=== PATIENT | female | born 1995 | race Caucasian/White ===

== ENCOUNTER → 2023-11-02 10:20 | Outpatient (REF) | payer BC, SELFPAY | LOC: PNTC 10:20 | PROVIDERS: ATTENDING PHYSICIAN Obstetrics & Gynecology | DX: Z36.0 Encounter for antenatal screening for chromosomal anomalies (principal); Z36.82 Encounter for antenatal screening for nuchal translucency | CPT/HCPCS: 76801; 76813 ==

== ENCOUNTER → 2023-11-30 10:56 | Outpatient (REF) | payer BC, SELFPAY | LOC: PNTC 10:56 | PROVIDERS: ATTENDING PHYSICIAN Obstetrics & Gynecology | DX: O99.210 Obesity complicating pregnancy, unspecified trimester (principal); Z87.59 Personal history of other complications of pregnancy, childbirth and the puerperium | CPT/HCPCS: 76805 ==

== ENCOUNTER 2023-12-13 09:37 | Emergency (ER) | payer BC, SELFPAY ==
[2023-12-13 09:48] VITALS: BP 151/92
--- NOTE | 2023-12-13 10:30 | ED.GENMED ---
History of Present Illness
General
Chief Complaint: Vaginal Bleeding
Time Seen by Provider: 12/13/23 10:06
Travel History
Have you had any contact with someone who has COVID-19?: No
Do you have any symptoms of coronavirus? Fever > 100 degrees, chills, cough, shortness of breath, sore throat, loss of taste or smell, muscle aches, or headache?: No
History of Present Illness
History of Present Illness:
28-year-old female, G4, P2 currently at 18 weeks gestational age presents to the emergency department for evaluation this morning. She states she had a busy weekend with lots of physical exertion a large blood clot passed through the vagina and
since that time has had small spotting. Denies any pelvic pain or cramping. She was. She states she has been feeling movement prior to this but is not feeling any movement this morning. Denies any dizziness or lightheadedness.
Past History
Past History
ED Past Medical History: Asthma
ED Past Surgical History: Tonsilectomy
Social History
Tobacco: Former smoker
Alcohol: Occasional
Drug: None
Personal: Single
Review of Systems
Review of Systems
Allergies reviewed?: Yes
All Other Systems: ROS reviewed and negative except as documented in HPI and ROS
Phy Exam
Physical Exam
Physical Exam:
GEN: Well appearing, NAD, WDWN
HEENT: Oral mucosa moist, no scleral icterus
Cardiac: Regular rate
Lung: No respiratory distress, no tachypnea
MSK: No gross deformity or injuries
Skin: Good color, no pallor or jaundice, no rashes
Neuro: AO x3, moves all extremities freely
Psych: Calm, cooperative
Course
Orders/Labs/Results
Orders:
Orders
12/13/23 10:12
Complete Blood Count/With Diff Urgent
Limited US [US Limited] Urgent
Comment:
Reason For Exam: 18wk GA bleeding
Vital Signs
Initial and Last Documented VS:
Initial Vital Signs
Temp Pulse Resp BP Pulse Ox
99.3 F 93 18 151/92 98
12/13/23 09:48 12/13/23 09:48 12/13/23 09:48 12/13/23 09:48 12/13/23 09:48
Last Documented Vital Signs
Temp Pulse Resp BP Pulse Ox
99.3 F 93 18 151/92 98
12/13/23 09:48 12/13/23 09:48 12/13/23 09:48 12/13/23 09:48 12/13/23 09:48
MDM/Problems Addressed
MDM/Problems Addressed:
Ultrasound reveals placenta previa which is likely the cause of her vaginal spotting. No evidence for threatened miscarriage however counseled the patient that this is a risk with any degree of vaginal bleeding. History of O+ blood type thus does
not require RhoGAM. Educated on strict pelvic rest until DENTAL APPLIANCE REPAIRER follow-up which is already scheduled for 1 week from today
*Critical Care Note
Total Time (30-74mins, 75-104mins- exclusive of procedures): Not Applicable
ED Attending Note
-
Portions of this chart may have been created with voice recognition software.� Occasional wrong word or��sound alike� substitutions may have occurred due to the inherent limitations of voice recognition software.
Discharge Plan
Departure
Patient Disposition: Home (Routine Discharge)
Date of Disposition: 12/13/23
Time of Disposition: 11:40
Patient with high blood pressure during this ER visit?: No
Discharge Problem:
Placenta previa
Instructions: Placenta previa
Prescriptions:
No Action
PNV cmb#95-ferrous fumarate-FA [] 1 EACH tablet
1 ea PO DAILY
cetirizine [Zyrtec] 10 MG tablet
10 mg PO DAILY
famotidine [Pepcid AC] 20 MG tablet
10 mg PO DAILY
docusate sodium [Colace] 100 MG capsule
100 mg PO DAILY
acetaminophen 325 mg Tablet
650 mg PO Q4HPRN PRN (Reason: mild pain) Qty: 0 0RF
oxycodone-acetaminophen 5-325 mg Tablet
1 tab PO Q4HPRN PRN (Reason: moderate pain) Qty: 10 0RF
ibuprofen 600 mg Tablet
600 mg PO Q6HPRN PRN (Reason: cramps) Qty: 45 0RF
simethicone [Gas Relief 80 (simethicone)] 80 mg Tablet,Chewable
80 mg PO TIDPRN PRN (Reason: flatulence) Qty: 0 0RF
Referrals:
Larissa Jara PA-C [Family Provider] -
Activity Restrictions/Additional Instructions:
We have to recommend strict pelvic rest, including no intercourse, vigorous exertion or heavy lifting >20 lbs
Follow up with your OBGYN in 1-2 weeks for re-assessment
If bleeding worsens, return to the Emergency Department
Interventions
Interventions:
*Risk Screen - Suicide Last Done: 12/13/23 09:48
*General Assessment Last Done: 12/13/23 09:48
*Neglect/Abuse Screening Last Done: 12/13/23 09:48
*ED COVID-19 Vaccine History Last Done: 12/13/23 09:48
*Nursing Disposition Last Done: 12/13/23 12:00
ED-Female Genitourinary Assessment Last Done: 12/13/23 12:37
Discharge Date and Time
Discharge Date/Time: 12/13/23 12:42
Print Language: [email or web address]
[2023-12-13 10:31] VITALS: BMI 41.5
== END 2023-12-13 12:42 | disposition home or self-care (01) ==
LOC: EMR 09:37
PROVIDERS: EMERGENCY PHYSICIAN Emergency Medicine; FAMILY PHYSICIAN Physician Assistant Medical
DX: O44.12 Complete placenta previa with hemorrhage, second trimester (principal); Z3A.18 18 weeks gestation of pregnancy; O99.891 Other specified diseases and conditions complicating pregnancy; J45.909 Unspecified asthma, uncomplicated; Z87.891 Personal history of nicotine dependence
CPT/HCPCS: 99284; 76815

== ENCOUNTER → 2023-12-27 09:52 | Outpatient (REF) | payer BC, SELFPAY | LOC: PNTC 09:52 | PROVIDERS: ATTENDING PHYSICIAN Obstetrics & Gynecology | DX: O99.210 Obesity complicating pregnancy, unspecified trimester (principal); Z87.59 Personal history of other complications of pregnancy, childbirth and the puerperium | CPT/HCPCS: 76811; 76817 ==

== ENCOUNTER → 2024-02-08 09:52 | Outpatient (REF) | payer BC, SELFPAY | LOC: PNTC 09:52 | PROVIDERS: ATTENDING PHYSICIAN Obstetrics & Gynecology | DX: O99.210 Obesity complicating pregnancy, unspecified trimester (principal) | CPT/HCPCS: 76816 ==

== ENCOUNTER → 2024-03-21 10:44 | Outpatient (REF) | payer BC, SELFPAY | LOC: PNTC 10:44 | PROVIDERS: ATTENDING PHYSICIAN Obstetrics & Gynecology | DX: O99.210 Obesity complicating pregnancy, unspecified trimester (principal) | CPT/HCPCS: 59025; 76816 ==

== ENCOUNTER 2024-03-23 17:01 | Observation (INO) | payer BC, SELFPAY ==
[2024-03-23 17:11] VITALS: BP 132/73; BMI 38.3
[2024-03-23 18:36] LABS: Hematocrit 29.6 % (37.0-47.0); Hemoglobin 10.3 g/dL (12.0-16.0); Mean Corp Hgb Conc. 34.8 g/dL (33.0-37.0); Mean Corpuscular Hgb 29.9 pg (27.0-31.0); Mean Corpuscular Volume 85.8 fL (81.0-99.0); Mean Platelet Volume 10.7 fL (7.4-10.4); Platelet Count 195 10^3/uL (130-400); Red Blood Cell Count 3.45 10^6/uL (4.20-5.40); Red Cell Dist. Width 12.6 % (11.5-14.5); White Blood Cell Count 10.2 10^3/uL (4.8-10.8)
[2024-03-23 19:05] LABS: Fibrinogen 675 MG/DL (199-459)
[2024-03-24] MEDS: TYLENOL 1000 MG PO (00:11)
== END 2024-03-24 08:03 | disposition home or self-care (01) ==
LOC: LDRP 17:01
PROVIDERS: ADMITTING PHYSICIAN Obstetrics & Gynecology; FAMILY PHYSICIAN Family Medicine
DX: R10.31 Right lower quadrant pain (principal); Z3A.32 32 weeks gestation of pregnancy; W10.8XXA Fall (on) (from) other stairs and steps, initial encounter; Y93.89 Activity, other specified; Y92.219 Unspecified school as the place of occurrence of the external cause; O99.213 Obesity complicating pregnancy, third trimester
CPT/HCPCS: 76815; 85027; 85384; 85460; 86850; 86900; 86901; G0378

== ENCOUNTER → 2024-03-27 07:13 | Outpatient (REF) | payer BC, SELFPAY | LOC: PNTC 07:13 | PROVIDERS: ATTENDING PHYSICIAN Obstetrics & Gynecology | DX: Z34.00 Encounter for supervision of normal first pregnancy, unspecified trimester (principal) | CPT/HCPCS: 59025; 76815 ==

== ENCOUNTER → 2024-04-03 13:16 | Outpatient (REF) | payer BC, SELFPAY | LOC: PNTC 13:16 | PROVIDERS: ATTENDING PHYSICIAN Obstetrics & Gynecology | DX: O99.210 Obesity complicating pregnancy, unspecified trimester (principal) | CPT/HCPCS: 59025; 76815 ==

== ENCOUNTER 2024-04-06 17:30 | Observation (INO) | payer BC, SELFPAY ==
[2024-04-06 17:57] VITALS: BP 127/77; BMI 38.3
[2024-04-06 18:45] LABS: Hematocrit 28.9 % (37.0-47.0); Hemoglobin 10.1 g/dL (12.0-16.0); Mean Corp Hgb Conc. 34.9 g/dL (33.0-37.0); Mean Platelet Volume 10.7 fL (7.4-10.4); Platelet Count 189 10^3/uL (130-400); Red Blood Cell Count 3.48 10^6/uL (4.20-5.40); Red Cell Dist. Width 13.1 % (11.5-14.5); White Blood Cell Count 8.9 10^3/uL (4.8-10.8)
[2024-04-06 19:01] LABS: Protein/creatinine Ratio 0.1; Urine Protein 9 mg/dl
[2024-04-06] MEDS: TYLENOL 1000 MG PO (19:05)
[2024-04-06 19:06] LABS: ALT (SGPT) 18 U/L (0-35); AST (SGOT) 20 U/L (14-36); Albumin 3.4 g/dl (3.5-5.0); Alkaline Phosphatase 113 U/L (38-126); Blood Urea Nitrogen 5 mg/dl (7-17); Calcium 9.3 mg/dl (8.4-10.2); Carbon Dioxide 17 mmol/L (22-30); Chloride 105 mmol/L (98-107); Estimated Creatinine Clearance > 125 ml/min; Glucose 100 mg/dl (70-99); Potassium 3.6 mmol/L (3.5-5.1); Sodium 139 mmol/L (135-145); Total Bilirubin 0.4 mg/dl (0.2-1.3); Total Protein 6.1 g/dl (6.3-8.2); eGFR > 60.00
== END 2024-04-06 20:15 | disposition home or self-care (01) ==
LOC: LDRP 17:30
PROVIDERS: ADMITTING PHYSICIAN Student in an Organized Health Care Education/Training Program
DX: R51.9 Headache, unspecified (principal); J45.909 Unspecified asthma, uncomplicated; O99.343 Other mental disorders complicating pregnancy, third trimester; F32.A Depression, unspecified; Z3A.34 34 weeks gestation of pregnancy; Z91.018 Allergy to other foods; F42.9 Obsessive-compulsive disorder, unspecified
CPT/HCPCS: 80053; 82570; 84156; 85027; G0378

== ENCOUNTER 2024-04-11 10:38 | Observation (INO) | payer BC, SELFPAY ==
[2024-04-11 10:59] LABS: Urine Albumin Negative (Neg - Trace); Urine Bilirubin Negative (Negative); Urine Character Slightly Cloudy (Clear); Urine Color Yellow; Urine Glucose Negative (Negative); Urine Ketone Negative (Negative); Urine Leukocyte 1+ (Negative); Urine Nitrite Negative (Negative); Urine Occult Blood Negative (Negative); Urine Specific Gravity 1.015 (<1.030); Urine Urobilinogen Negative (Neg - 1+)
[2024-04-11 11:00] VITALS: BP 136/77; BMI 41.6
[2024-04-11 11:01] LABS: Hematocrit 31.4 % (37.0-47.0); Hemoglobin 10.4 g/dL (12.0-16.0); Mean Corp Hgb Conc. 33.1 g/dL (33.0-37.0); Mean Corpuscular Hgb 28.7 pg (27.0-31.0); Mean Corpuscular Volume 86.7 fL (81.0-99.0); Mean Platelet Volume 10.6 fL (7.4-10.4); Platelet Count 166 10^3/uL (130-400); Red Blood Cell Count 3.62 10^6/uL (4.20-5.40); Red Cell Dist. Width 13.7 % (11.5-14.5); White Blood Cell Count 6.9 10^3/uL (4.8-10.8)
[2024-04-11 11:27] LABS: ALT (SGPT) 20 U/L (0-35); AST (SGOT) 24 U/L (14-36); Albumin 3.6 g/dl (3.5-5.0); Alkaline Phosphatase 119 U/L (38-126); Blood Urea Nitrogen 4 mg/dl (7-17); Calcium 9.2 mg/dl (8.4-10.2); Carbon Dioxide 22 mmol/L (22-30); Chloride 105 mmol/L (98-107); Estimated Creatinine Clearance > 125 ml/min; Glucose 93 mg/dl (70-99); Potassium 4.3 mmol/L (3.5-5.1); Sodium 137 mmol/L (135-145); Total Bilirubin 0.5 mg/dl (0.2-1.3); Total Protein 6.2 g/dl (6.3-8.2); eGFR > 60.00
[2024-04-11 11:38] LABS: Protein/creatinine Ratio 0.1; Urine Protein 5 mg/dl
[2024-04-11 12:19] LABS: Urine Squamous Cell >30 /LPF (Few)
[2024-04-11 12:20] LABS: Urine Bacteria Few (Negative); Urine Red Blood Cell 0-2 /HPF (0-2)
== END 2024-04-11 12:00 | disposition home or self-care (01) ==
LOC: PNTC-IN 10:38
PROVIDERS: ADMITTING PHYSICIAN Obstetrics & Gynecology; ATTENDING PHYSICIAN Obstetrics & Gynecology
DX: O13.3 Gestational [pregnancy-induced] hypertension without significant proteinuria, third trimester (principal); Z3A.35 35 weeks gestation of pregnancy; O34.219 Maternal care for unspecified type scar from previous cesarean delivery
CPT/HCPCS: 59025; 76815; 80053; 81003; 81015; 82570; 84156; 85027; G0378

== ENCOUNTER → 2024-04-13 10:17 | Outpatient (REF) | payer BC, SELFPAY | LOC: PNTC 10:17 | PROVIDERS: ATTENDING PHYSICIAN Obstetrics & Gynecology | DX: O14.90 Unspecified pre-eclampsia, unspecified trimester (principal) | CPT/HCPCS: 59025 ==

== ENCOUNTER → 2024-04-17 13:21 | Outpatient (REF) | payer BC, SELFPAY | LOC: PNTC 13:21 | PROVIDERS: ATTENDING PHYSICIAN Obstetrics & Gynecology | DX: O99.210 Obesity complicating pregnancy, unspecified trimester (principal) | CPT/HCPCS: 59025; 76816 ==

== ENCOUNTER → 2024-04-25 10:24 | Outpatient (REF) | payer BC, SELFPAY | LOC: PNTC 10:24 | PROVIDERS: ATTENDING PHYSICIAN Obstetrics & Gynecology | DX: O99.210 Obesity complicating pregnancy, unspecified trimester (principal) | CPT/HCPCS: 59025; 76815 ==

== ENCOUNTER → 2024-05-02 10:03 | Outpatient (REF) | payer BC, SELFPAY | LOC: PNTC 10:03 | PROVIDERS: ATTENDING PHYSICIAN Obstetrics & Gynecology | DX: O99.210 Obesity complicating pregnancy, unspecified trimester (principal) | CPT/HCPCS: 59025; 76815 ==

== ENCOUNTER 2024-05-02 15:45 | Inpatient (IN) | payer BC, SELFPAY ==
[2024-05-02 15:57] VITALS: BP 139/85; BMI 41.6
[2024-05-02 16:53] LABS: % Basophils 0.4 % (0-2); % Eosinophils 0.4 % (0-6); % Immature Granulocytes 1.4 % (0-0.5); % Lymphocytes 16.7 % (20.5-51.1); % Monocytes 5.9 % (1.7-9.3); % Neutrophils 75.2 % (42.2-75.2); Absolute Immature Granulocytes 0.1 10^3/uL (0-0.05); Absolute Lymphocytes 1.5 10^3/uL (1.2-3.4); Absolute Monocytes 0.5 10^3/uL (0.1-0.6); Absolute Neutrophils 6.9 10^3/uL (1.4-6.5); Hematocrit 33.4 % (37.0-47.0); Hemoglobin 11.4 g/dL (12.0-16.0); Mean Corp Hgb Conc. 34.1 g/dL (33.0-37.0); Mean Platelet Volume 10.9 fL (7.4-10.4); Nucleated Red Blood Cells % 0 %; Platelet Count 183 10^3/uL (130-400); Red Blood Cell Count 3.93 10^6/uL (4.20-5.40); Red Cell Dist. Width 15.5 % (11.5-14.5); White Blood Cell Count 9.2 10^3/uL (4.8-10.8)
[2024-05-02 17:00] LABS: Urine Albumin Negative (Neg - Trace); Urine Bilirubin Negative (Negative); Urine Character Clear (Clear); Urine Color Yellow; Urine Glucose Negative (Negative); Urine Ketone Negative (Negative); Urine Leukocyte Trace (Negative); Urine Nitrite Negative (Negative); Urine Occult Blood Negative (Negative); Urine Urobilinogen Negative (Neg - 1+)
[2024-05-02 17:15] LABS: Urine Bacteria Few (Negative); Urine Red Blood Cell 0-2 /HPF (0-2); Urine Squamous Cell >30 /LPF (Few); Urine White Cell 0-2 /HPF (0-5)
[2024-05-02 17:19] LABS: ALT (SGPT) 22 U/L (0-35); AST (SGOT) 24 U/L (14-36); Albumin 3.7 g/dl (3.5-5.0); Alkaline Phosphatase 131 U/L (38-126); Blood Urea Nitrogen 6 mg/dl (7-17); Calcium 9.8 mg/dl (8.4-10.2); Carbon Dioxide 19 mmol/L (22-30); Chloride 105 mmol/L (98-107); Estimated Creatinine Clearance > 125 ml/min; Glucose 105 mg/dl (70-99); Potassium 4.1 mmol/L (3.5-5.1); Protein/creatinine Ratio 0.4; Sodium 135 mmol/L (135-145); Total Bilirubin 0.5 mg/dl (0.2-1.3); Total Protein 6.4 g/dl (6.3-8.2); Uric Acid 3.9 mg/dl (2.5-6.2); Urine Protein 12 mg/dl; eGFR > 60.00
[2024-05-02] MEDS: ANCEF 10 IV (19:10)
[2024-05-02] MEDS: BICITRA 30 ML PO (19:10)
[2024-05-02] MEDS: TYLENOL 1000 MG PO (19:10)
[2024-05-02] MEDS: PITOCIN 30 UNITS/NSS 500 ML IV (21:34)
[2024-05-02] MEDS: LR 1000 IV (21:35)
[2024-05-02] MEDS: TORADOL 15 MG IV (21:54)
[2024-05-02] MEDS: TYLENOL 650 MG PO (23:06)
[2024-05-03] MEDS: TORADOL 15 MG IV ×3 (03:50→17:41)
--- NOTE | 2024-05-03 04:03 | DOWNTIME ---
There was a [email or web address] Client [employer] Press Tender Downtime on 05/03/2024 from 0100 to 05/03/2024 at 0355. Downtime documentation of patient's care, including medication administrations, has been reconciled in the electronic record per guidelines. Refer to the
patient's paper chart under the miscellaneous tab to see printed paper medication records and downtime forms.
[2024-05-03 05:00] LABS: Hematocrit 32.6 % (37.0-47.0); Mean Corp Hgb Conc. 33.7 g/dL (33.0-37.0); Mean Corpuscular Hgb 30.1 pg (27.0-31.0); Mean Corpuscular Volume 89.1 fL (81.0-99.0); Platelet Count 148 10^3/uL (130-400); Red Blood Cell Count 3.66 10^6/uL (4.20-5.40); Red Cell Dist. Width 15.4 % (11.5-14.5); White Blood Cell Count 10.7 10^3/uL (4.8-10.8)
--- NOTE | 2024-05-03 06:55 | W.PN.ANS.POP ---
Anesthesia Post Operative
- Anesthesia Post Op Note
Vital Signs Stable-See Nursing Note: Yes
Airway Patent: Yes
Adequate Pain Control: Yes
Change in Mental Status: No
Current Postoperative Nausea & Vomiting: No
Anesthesia Complications: No
General Anesthetic Recall: No
Unplanned Admission: No
Post Op Hydration Adequate: Yes
[2024-05-03] MEDS: PRENATAL PLUS 1 TABLET PO (08:56)
[2024-05-03] MEDS: SENOKOT-S 1 TABLET PO (08:56)
[2024-05-03] MEDS: TYLENOL 650 MG PO (20:17)
[2024-05-03] MEDS: MOTRIN 600 MG PO (22:51)
[2024-05-04] MEDS: MOTRIN 600 MG PO ×2 (04:52→11:22)
[2024-05-04] MEDS: TYLENOL 650 MG PO ×2 (04:53→14:30)
[2024-05-04] MEDS: PRENATAL PLUS 1 TABLET PO (08:53)
[2024-05-05 16:26] LABS: Syphilis/T. pallidum Ab Reflex Negative (Negative)
== END 2024-05-04 16:56 | disposition home or self-care (01) | DRG 785 ==
LOC: LDRP 15:45
PROVIDERS: ADMITTING PHYSICIAN Obstetrics & Gynecology; FAMILY PHYSICIAN Family Medicine
PROC: 0UB50ZZ Excision of Right Fallopian Tube, Open Approach (ICD-10-PCS; 2024-05-02)
PROC: 10D00Z1 Extraction of Products of Conception, Low, Open Approach (ICD-10-PCS; 2024-05-02)
PROC: 0UT60ZZ Resection of Left Fallopian Tube, Open Approach (ICD-10-PCS; 2024-05-02)
DX: O14.04 Mild to moderate pre-eclampsia, complicating childbirth (principal); O34.211 Maternal care for low transverse scar from previous cesarean delivery; Z3A.38 38 weeks gestation of pregnancy; Z37.0 Single live birth; Z30.2 Encounter for sterilization; O99.214 Obesity complicating childbirth; O99.52 Diseases of the respiratory system complicating childbirth; J45.909 Unspecified asthma, uncomplicated
CPT/HCPCS: 88302; 88307; 36415; 58605; 59025; 80053; 81003; 81015; 82570; 84156; 84550; 85025; 85027; 86780; 86850; 86900; 86901

== ENCOUNTER → 2024-06-23 10:28 | Outpatient (REF) | payer BC, SELFPAY | LOC: RCS 10:28 | PROVIDERS: ATTENDING PHYSICIAN Physician Assistant Medical | DX: R00.2 Palpitations (principal) | CPT/HCPCS: 93225; 93226 ==

== ENCOUNTER → 2024-07-06 14:51 | Outpatient (REF) | payer BC, SELFPAY | LOC: RCS 14:51 | PROVIDERS: ATTENDING PHYSICIAN Physician Assistant Medical | DX: R00.2 Palpitations (principal) | CPT/HCPCS: 93306 ==

== ENCOUNTER 2025-04-20 17:52 | Emergency (ER) | payer BC, SELFPAY ==
[2025-04-20 17:56] VITALS: BP 148/90
--- NOTE | 2025-04-20 18:49 | ED.GENMED ---
History of Present Illness
<Hilda St PA-C - Last Filed: 04/21/25 09:36>
General
Chief Complaint: Fainting/Passed Out
Source: patient
Exam Limitations: none
Time Seen by Provider: 04/20/25 18:30
History of Present Illness
History of Present Illness:
30yoF with a history of asthma and migraines presenting for evaluation of multiple complaints. Patient was seen by her PCP a few days ago for GI symptoms including lower abdominal discomfort. She was diagnosed with presumed diverticulitis and
prescribed Flagyl and advised to use a clear liquid diet. Her abdominal symptoms are improving although she still continues to have abdominal pain. She started with a frontal headache about 2 hours prior to arrival which has been gradually
worsening and is now severe. Her pain is currently rated as a 10 out of 10 in severity. She had a similar headache a few months ago during an ocular migraine. She was in the car this evening and was looking at her cell phone when she started to
become dizzy. She then passed out several times within a few minute time frame. She denies any chest pain or shortness of breath. She denies chance of .
Past History
<Hilda St PA-C - Last Filed: 04/21/25 09:36>
Past History
ED Past Medical History: Asthma
ED Past Surgical History: Tonsilectomy
Social History
Tobacco: Former smoker
Alcohol: Occasional
Drug: None
Personal: Single
Phy Exam
<Hilda St PA-C - Last Filed: 04/21/25 09:36>
Physical Exam
Physical Exam:
Patient crying and clutching head. Sitting in a dark room
General Physical Exam
General Presentation: moderate distress
General Skin: warm and dry
General Habitus: normal
General Mental: alert and anxious
ENT Exam
ENT Exam: normocephalic and other (Full ROM of cervical spine without meningismus )
Eye Exam
Eye Exam: PERRL and conjunctiva normal
Cardiovascular Exam
Cardiovascular Exam: regular rate/rhythm, no edema and no murmur
Pulmonary Exam
Pulmonary Exam: lungs clear, no respiratory distress, no rales, no crackles, no rhonchi and no wheezing
Gastrointestinal Exam
Gastrointestinal Exam: soft, non distended and other (+Tenderness throughout lower abdomen. Abdomen soft, non-distended. No rebound or guarding.)
Neurological Exam
Neurological Exam: alert, speech normal and other (Speech normal. No focal neuro deficits.)
[place] Coma Scale
Eye Opening: Spontaneous
Verbal Response: Oriented
Motor Response: Obeys Commands
GCS Total Score: 15
Skin Exam
Skin Exam: normal color and warm/dry
Psychiatric Exam
Psychiatric Exam: normal mood/affect
<Angel Blake PA-C - Last Filed: 04/20/25 22:57>
[place] Coma Scale
GCS Total Score: 15
Course
<Hilda St PA-C - Last Filed: 04/21/25 09:36>
Orders/Labs/Results
Orders:
Orders
04/20/25 18:03
EKG [Electrocardiogram (*1)] Urgent
Reason for Study: Fatigue / Weakness
EKG- Treatment ONCE
04/20/25 18:40
Cardiac Monitoring- Treatment ONCE
0.9% Sodium Chloride 1000 ml [Nss] 1,000 ml IV BOLUS
Acetaminophen 1000MG/100Ml [Ofirmev] 1,000 mg in 100 ml IV ONCE
Acetaminophen IV Indication:: ED Narcotic Naive Pt-ONCE
Diphenhydramine [Benadryl] 25 mg IV NOW STA
Magnesium Sulfate 2 Gram/50 ml [Magnesium Sulfate] 2 gram in 50 ml IV NOW
Metoclopramide [Reglan] 10 mg IV NOW STA
Test Result ONCE
04/20/25 18:41
CT Abd/pelvis W Iv Cont Urgent
Comment:
Reason For Exam: lower abd pain
CT Head W/o Iv Contrast Urgent
Comment:
Reason For Exam: acute headache
04/20/25 18:49
Complete Blood Count/With Diff Urgent
Comprehensive Metabolic Panel Urgent
HCG, Serum Qualitative Screen Urgent
Lipase Urgent
Troponin I Urgent
04/20/25 19:18
Urinalysis Reflex To Culture Urgent
Date Specimen was Collected: 04/20/25
Time Specimen was Collected: 19:17
Urine Microscopic Reflex Cult Urgent
Urine Culture Urgent
CARLYN Source: U
Specimen Description:
Date Specimen was Collected: 04/20/25
Time Specimen was Collected: 19:17
Abnormal Lab Results
04/20/25 04/20/25
18:49 19:18
RBC 4.17 L 10^6/uL
(4.20-5.40)
Hgb 11.8 L g/dL
(12.0-16.0)
Hct 34.7 L %
(37.0-47.0)
Leukocyte Esterase Rfl 1+ A
(Negative)
Urine Bacteria (Reflex) Few A
(Negative)
04/20/25 18:49
04/20/25 18:49
Vital Signs
Initial and Last Documented VS:
Initial Vital Signs
Temp Pulse Resp BP Pulse Ox
98.2 F 70 16 148/90 100
04/20/25 17:56 04/20/25 17:56 04/20/25 17:56 04/20/25 17:56 04/20/25 17:56
Last Documented Vital Signs
Temp Pulse Resp BP Pulse Ox
98.2 F 52 16 117/67 97
04/20/25 17:56 04/20/25 21:30 04/20/25 21:30 04/20/25 21:00 04/20/25 21:30
<Angel Blake PA-C - Last Filed: 04/20/25 22:57>
Orders/Labs/Results
Orders:
Orders
04/20/25 18:03
EKG [Electrocardiogram (*1)] Urgent
Reason for Study: Fatigue / Weakness
EKG- Treatment ONCE
04/20/25 18:40
Cardiac Monitoring- Treatment ONCE
0.9% Sodium Chloride 1000 ml [Nss] 1,000 ml IV BOLUS
Acetaminophen 1000MG/100Ml [Ofirmev] 1,000 mg in 100 ml IV ONCE
Acetaminophen IV Indication:: ED Narcotic Naive Pt-ONCE
Diphenhydramine [Benadryl] 25 mg IV NOW STA
Magnesium Sulfate 2 Gram/50 ml [Magnesium Sulfate] 2 gram in 50 ml IV NOW
Metoclopramide [Reglan] 10 mg IV NOW STA
Test Result ONCE
04/20/25 18:41
CT Abd/pelvis W Iv Cont Urgent
Comment:
Reason For Exam: lower abd pain
CT Head W/o Iv Contrast Urgent
Comment:
Reason For Exam: acute headache
04/20/25 18:49
Complete Blood Count/With Diff Urgent
Comprehensive Metabolic Panel Urgent
HCG, Serum Qualitative Screen Urgent
Lipase Urgent
Troponin I Urgent
04/20/25 19:18
Urinalysis Reflex To Culture Urgent
Date Specimen was Collected: 04/20/25
Time Specimen was Collected: 19:17
Urine Microscopic Reflex Cult Urgent
Urine Culture Urgent
CARLYN Source: U
Specimen Description:
Date Specimen was Collected: 04/20/25
Time Specimen was Collected: 19:17
Abnormal Lab Results
04/20/25 04/20/25
18:49 19:18
RBC 4.17 L 10^6/uL
(4.20-5.40)
Hgb 11.8 L g/dL
(12.0-16.0)
Hct 34.7 L %
(37.0-47.0)
Leukocyte Esterase Rfl 1+ A
(Negative)
Urine Bacteria (Reflex) Few A
(Negative)
04/20/25 18:49
04/20/25 18:49
Vital Signs
Initial and Last Documented VS:
Initial Vital Signs
Temp Pulse Resp BP Pulse Ox
98.2 F 70 16 148/90 100
04/20/25 17:56 04/20/25 17:56 04/20/25 17:56 04/20/25 17:56 04/20/25 17:56
Last Documented Vital Signs
Temp Pulse Resp BP Pulse Ox
98.2 F 52 16 117/67 97
04/20/25 17:56 04/20/25 21:30 04/20/25 21:30 04/20/25 21:00 04/20/25 21:30
Liorlt;Hilda St PA-C - Last Filed: 04/21/25 09:36>
MDM/Problems Addressed
Differential Diagnosis Includes:
30yoF here with a severe headache x 2 hours. Hx of migraines and this feels the same although she is typically able to manage her headaches at home. Also had syncopal episodes in the car [employer]WR[employer]ER. Currently being treated for diverticulitis. Patient is
crying on initial exam and is clutching her head. No focal neuro deficits or nuchal rigidity noted. Differential diagnosis includes but is not limited to: Migraine, cluster headache, tension headache, consider subarachnoid hemorrhage, dehydration,
less likely ACS
Initial ED plan: Check abdominal labs, troponin/EKG, hCG, UA, CT head, and CT abdomen. IV Reglan, Benadryl, Ofirmev, magnesium, and fluid bolus for symptoms.
Final assessment: Labs overall unremarkable. Hemoglobin is minimally decreased at 11.8. Remainder of labs are normal including normal glucose and troponin. EKG shows normal sinus rhythm without ischemic changes or ectopy. CT head is negative for
acute findings but does show Chiari I malformation. Given that head CT was obtained <6 hours of symptom onset, this is sufficiency to rule out subarachnoid hemorrhage. Patient feeling significantly improved on reassessment and headache is down to
a 3/10 in severity. Case signed out to Finn Blake PA-C pending CT abdomen results.
<Hilda St PA-C - Last Filed: 04/21/25 09:36>
*Pulse Oximetry
SaO2: 100
Oxygen Mode of Delivery: Room air
<Angel Blake PA-C - Last Filed: 04/20/25 22:57>
*Pulse Oximetry
Patient hypoxic: no
*Critical Care Note
Total Time (30-74mins, 75-104mins- exclusive of procedures): Not Applicable
<Angel Blake PA-C - Last Filed: 04/20/25 22:57>
Update Note
Update Note:
Assumed care of patient at shift change, awaiting CT abdomen results. CT shows left sided ovarian cyst with small amount of fluid in the pelvic cul-de-sac. I suggest to the patient that given lack of findings of diverticulitis that she stop her
metronidazole as diverticulitis is less likely and her pain may be due to the ovarian cyst. Regards to her syncope this may be related to a migraine that she reported having today. She is advised to follow-up with her primary care physician for
further workup of this
ED Attending Note
<Hilda St PA-C - Last Filed: 04/21/25 09:36>
-
Portions of this chart may have been created with voice recognition software.� Occasional wrong word or��sound alike� substitutions may have occurred due to the inherent limitations of voice recognition software.
Discharge Plan
Departure
Patient Disposition: Home (Routine Discharge)
Date of Disposition: 04/20/25
Time of Disposition: 21:32
Patient with high blood pressure during this ER visit?: No
Discharge Problem:
Syncope
Instructions: Syncope (Fainting) (DC)
Prescriptions:
No Action
PNV no.95-ferrous fumarate-FA [] 1 EACH tablet
1 ea PO DAILY
cetirizine [Zyrtec] 10 MG tablet
10 mg PO DAILY
famotidine [Pepcid AC] 20 MG tablet
10 mg PO DAILY
ferrous sulfate 30 mg iron/2 mL Syringe
65 mg PO DAILY
albuterol 90 mcg/actuation Aerosol
See Rx Instructions .ROUTE .COMPLEX PRN (Reason: allergy induced asthma)
Rx Instructions:
as needed for SOB
magnesium oxide 250 mg magnesium Tablet
250 mg PO DAILY
sennosides-docusate sodium 8.6-50 mg Tablet
1 tab PO DAILYPRN PRN (Reason: constipation) Qty: 30 0RF
ibuprofen 600 mg Tablet
600 mg PO Q6HPRN PRN (Reason: cramps) Qty: 30 0RF
acetaminophen 325 mg Tablet
650 mg PO Q4HPRN PRN (Reason: mild pain) Qty: 30 0RF
Referrals:
Eusebia López PA [Family Provider, Family Practice]
Activity Restrictions/Additional Instructions:
Your CT scan of the abdomen does show a small cyst on your left ovary as well as a small amount of fluid in the pelvis. This could represent a ruptured cyst however more likely is physiologic fluid. Please follow-up with your primary doctor to
have repeat ultrasound in the next 6 to 8 weeks to reassess the cyst on your ovary
Interventions
Interventions:
*Risk Screen - Suicide Last Done: 04/20/25 17:56
*General Assessment Last Done: 04/20/25 19:11
*Neglect/Abuse Screening Last Done: 04/20/25 17:56
*ED- Fall Risk Assessment Last Done: 04/20/25 19:11
*ED COVID-19 Vaccine History Last Done: 04/20/25 19:11
*ED Influenza Vaccine History Last Done: 04/20/25 19:11
*Nursing Disposition Last Done: 04/20/25 21:48
ED- Cardiac Assessment Last Done: 04/20/25 19:11
ED- Neurological Assessment Last Done: 04/20/25 19:11
Discharge Date and Time
Discharge Date/Time: 04/20/25 21:49
Print Language: ICELANDIC
[2025-04-20] MEDS: NSS 1000 IV (18:50)
[2025-04-20] MEDS: OFIRMEV 100 IV (18:55)
[2025-04-20 18:56] VITALS: BMI 37.8
[2025-04-20 18:58] VITALS: BP 126/74
[2025-04-20] MEDS: REGLAN 10 MG IV (18:59)
[2025-04-20] MEDS: BENADRYL 25 MG IV (19:00)
[2025-04-20 19:03] LABS: Hematocrit 34.7 % (37.0-47.0); Hemoglobin 11.8 g/dL (12.0-16.0); Mean Corp Hgb Conc. 34.0 g/dL (33.0-37.0); Mean Corpuscular Volume 83.2 fL (81.0-99.0); Nucleated Red Blood Cells % 0 %; Platelet Count 294 10^3/uL (130-400); Red Cell Dist. Width 12.3 % (11.5-14.5)
[2025-04-20] MEDS: MAGNESIUM SULFATE 50 IV (19:08)
[2025-04-20 19:26] LABS: Urine Character Clear (Clear)
[2025-04-20 19:27] LABS: HCG, Serum Qualitative Screen Negative
[2025-04-20 19:28] LABS: Troponin I < 0.012 ng/ml
[2025-04-20 19:31] LABS: ALT (SGPT) 15 U/L (0-35); AST (SGOT) 18 U/L (14-36); Albumin 4.4 g/dl (3.5-5.0); Alkaline Phosphatase 71 U/L (38-126); Blood Urea Nitrogen 9 mg/dl (7-17); Calcium 9.7 mg/dl (8.4-10.2); Carbon Dioxide 25 mmol/L (22-30); Chloride 107 mmol/L (98-107); Estimated Creatinine Clearance > 125 ml/min; Glucose 95 mg/dl (70-99); Lipase 55 U/L (23-300); Potassium 4.2 mmol/L (3.5-5.1); Sodium 139 mmol/L (135-145); Total Protein 7.1 g/dl (6.3-8.2); eGFR > 60.00
[2025-04-20 20:07] LABS: Urine Squamous Cell >30 /LPF (Few)
[2025-04-20 20:08] LABS: Urine Red Blood Cell 0-2 /HPF (0-2); Urine White Cell 0-2 /HPF (0-5)
[2025-04-20 20:11] VITALS: BP 122/68
[2025-04-20 21:00] VITALS: BP 117/67
== END 2025-04-20 21:49 | disposition home or self-care (01) ==
LOC: EMR 17:52
PROVIDERS: Physician Assistant; EMERGENCY PHYSICIAN Emergency Medicine; FAMILY PHYSICIAN Physician Assistant Medical
DX: R55 Syncope and collapse (principal); G93.5 Compression of brain; N83.202 Unspecified ovarian cyst, left side; J45.909 Unspecified asthma, uncomplicated; G43.909 Migraine, unspecified, not intractable, without status migrainosus; Z87.891 Personal history of nicotine dependence
CPT/HCPCS: 99284; 96365; 96374; 96375 ×2; 96361; 70450; 74177; 80053; 81003; 81015; 83690; 84484; 84703; 85025; 87086; 93005; Q9967